=== PATIENT | female | born 1955 | race Hispanic/Latino ===

== ENCOUNTER → 2020-06-25 | Outpatient (CLI) | payer MEDICARE | LOC: RAD 10:01 | PROVIDERS: ATTEND Family Medicine | DX: D72.829 Elevated white blood cell count, unspecified (principal) | CPT/HCPCS: 71046 ==

== ENCOUNTER 2021-11-12 05:26 | Observation (INO) | payer MEDICARE ==
[~2021-11-12] VITALS: Ht 154.9 cm; Wt 68.9 kg
[2021-11-12] MEDS ORDERED: ONDANSETRON HCL INJ 2MG/ML 2ML 2 MG/ML VIAL IV STA (05:34)
[2021-11-12] MEDS ORDERED: SODIUM CHLORIDE 0.9% 1000ML 1,000 ML IV SCH ×2 (05:45→12:00)
[2021-11-12] MEDS ORDERED: Morphine 4mg INJECTION 4 MG/ML INJ IV ONE (05:45)
[2021-11-12] MEDS ORDERED: ACETAMINOPHEN 325 MG TAB PO ONE (05:45)
[2021-11-12] MEDS ORDERED: ONDANSETRON HCL INJ 2MG/ML 2ML 2 MG/ML VIAL ONE ×2 (05:49→12:44)
[2021-11-12] MEDS ORDERED: ACETAMINOPHEN 325 MG TAB ONE (05:49)
[2021-11-12] MEDS ORDERED: Morphine 4mg INJECTION 4 MG/ML INJ ONE (05:49)
[2021-11-12] MEDS ORDERED: SODIUM CHLORIDE 0.9% 1000ML 1,000 ML ONE (05:49)
[2021-11-12 06:01] LABS: BASOPHILS # (AUTO) 0.1 (0.0-0.1); BASOPHILS % 0.3 % (0.0-1.0); EOSINOPHILS # (AUTO) 0.1 (0.0-0.4); EOSINOPHILS % 0.6 % (0.0-6.0); HEMATOCRIT 42.9 % (34.2-44.1); HEMOGLOBIN 13.5 g/dL (12.0-16.0); LYMPHOCYTES # (AUTO) 2.8 (1.0-3.2); LYMPHOCYTES % 13.5 % (18.0-39.1); MEAN CORPUSCULAR HEMOGLOBIN 29.9 pg (28-32); MEAN CORPUSCULAR HGB CONC 31.5 g/dL (31-35); MEAN CORPUSCULAR VOLUME 95.1 fL (81-99); MONOCYTES # (AUTO) 1.2 (0.2-0.8); MONOCYTES % 5.7 % (4.4-11.3); NEUTROPHILS # (AUTO) 16.3 (2.1-6.9); NEUTROPHILS % 79.5 % (38.7-80.0); PLATELET COUNT 193 x10e3/uL (140-360); RED BLOOD COUNT 4.51 x10e6/uL (3.6-5.1); RED CELL DISTRIBUTION WIDTH 13.1 % (11.7-14.4)
[2021-11-12 06:18] LABS: ALBUMIN 4.3 g/dL (3.5-5.0); ALBUMIN/GLOBULIN RATIO 1.3 (0.8-2.0); ANION GAP 17.9 mmol/L (8-16); CALCIUM 9.5 mg/dL (8.4-10.2); CREATININE, SERUM 0.77 mg/dL (0.57-1.11); POTASSIUM 4.9 mmol/L (3.5-5.1)
[2021-11-12] MEDS ORDERED: PIPERACILLIN/TAZOBACTAM 3.375 GM VIAL ONE (06:34)
[2021-11-12 06:49] LABS: CLARITY,URINE CLEAR (CLEAR); COLOR,URINE YELLOW (YELLOW); KETONES,URINE NEGATIVE (NEGATIVE); LEUKOCYTE ESTERASE ,URINE NEGATIVE (NEGATIVE); NITRITE,URINE NEGATIVE (NEGATIVE); PROTEIN,URINE DIPSTICK NEGATIVE (NEGATIVE); URINE UROBILINOGEN 0.2 mg/dL (0.2 - 1)
[2021-11-12] MEDS ORDERED: IOPAMIDOL 370 MG/ML 100 ML INFUS..BTL INJ ONE (06:52)
[2021-11-12 06:59] LABS: BACTERIA,URINE FEW /HPF; EPITHELIAL CELLS,URINE FEW /LPF; WBC,URINE (MAN) 0-5 /HPF (0-5)
[2021-11-12] MEDS ORDERED: CRESTOR10 MG PO (11:23)
[2021-11-12] MEDS ORDERED: LOSARTAN POTASS25 MG PO (11:23)
[2021-11-12 11:45] VITALS: BP 118/72
[2021-11-12] MEDS ORDERED: ONDANSETRON HCL INJ 2MG/ML 2ML 2 MG/ML VIAL IV PRN ×2 (12:00→15:45)
[2021-11-12] MEDS: ACETAMINOPHEN 1000 MG/100 ML IV PRN (12:35)
[2021-11-12] MEDS ORDERED: DEXAMETHASONE SOD PHOS INJ 4 MG/ML SDV ONE (12:44)
[2021-11-12] MEDS ORDERED: ROCURONIUM BROMIDE 10 MG/ML 5ML VIAL IV ONE (12:44)
[2021-11-12] MEDS ORDERED: SEVOFLURANE INHAL SOLN 250 ML PEN BTL ONE (12:44)
[2021-11-12] MEDS ORDERED: POVIDONE IODINE 0.05% 0.05 % ML PO ONE (12:44)
[2021-11-12] MEDS ORDERED: LIDOCAINE HCL 2% LOCAL INJ 5 ML SDV VIAL INJ ONE (12:44)
[2021-11-12] MEDS ORDERED: PROPOFOL IV EMULSION 10 MG/ML 20 ML VIAL ONE (12:44)
[2021-11-12] MEDS ORDERED: MIDAZOLAM HCL 2 MG/2 ML VIAL ONE (13:12)
[2021-11-12] MEDS ORDERED: FENTANYL CITRATE/PF 100MCG/2 ML INJ ONE (13:12)
[2021-11-12] MEDS ORDERED: BUPIVACAINE HC 0.75% PF 10ML VIAL INJ ONE (14:33)
[2021-11-12] MEDS: SODIUM CHLORIDE 0.9% 1000ML 1,000 ML IV SCH (15:45)
[2021-11-12] MEDS ORDERED: Morphine 4mg INJECTION 4 MG/ML INJ IV PRN (15:45)
[2021-11-12 16:44] VITALS: BP 154/80
[2021-11-12] MEDS ORDERED: FAMOTIDINE 20 MG/2 ML VIAL IV SCH (17:00)
[2021-11-12 20:00] VITALS: BP 119/68
[2021-11-12] MEDS: FAMOTIDINE 20 MG/2 ML VIAL IV SCH (20:30)
[2021-11-12 21:26] VITALS: BP 119/68
[2021-11-13] VITALS (8 sets, daily range): BP systolic 127–145; BP diastolic 71–77
[2021-11-13] MEDS: ACETAMINOPHEN 325 MG TAB PO PRN ×2 (00:17→20:30)
[2021-11-13] MEDS: SODIUM CHLORIDE 0.9% 1000ML 1,000 ML IV SCH ×2 (02:58→12:53)
[2021-11-13] MEDS: ACETAMINOPHEN 1000 MG/100 ML IV PRN (08:35)
[2021-11-13] MEDS: FAMOTIDINE 20 MG/2 ML VIAL IV SCH ×2 (08:51→20:29)
[2021-11-13] MEDS ORDERED: IOPAMIDOL 370 MG/ML 100 ML INFUS..BTL INJ ONE ×2 (11:42→14:27)
[2021-11-13] MEDS: SIMETHICONE 80 MG CHEW PO PRN ×2 (12:54→20:29)
[2021-11-13 13:43] LABS: BASOPHILS # (AUTO) 0.1 (0.0-0.1); BASOPHILS % 0.3 % (0.0-1.0); EOSINOPHILS % 0.2 % (0.0-6.0); HEMATOCRIT 37.4 % (34.2-44.1); HEMOGLOBIN 11.4 g/dL (12.0-16.0); LYMPHOCYTES # (AUTO) 2.4 (1.0-3.2); LYMPHOCYTES % 11.9 % (18.0-39.1); MEAN CORPUSCULAR HEMOGLOBIN 30.2 pg (28-32); MEAN CORPUSCULAR HGB CONC 30.5 g/dL (31-35); MEAN CORPUSCULAR VOLUME 98.9 fL (81-99); MONOCYTES # (AUTO) 0.8 (0.2-0.8); MONOCYTES % 4.2 % (4.4-11.3); NEUTROPHILS # (AUTO) 16.5 (2.1-6.9); NEUTROPHILS % 82.9 % (38.7-80.0); PLATELET COUNT 158 x10e3/uL (140-360); RED BLOOD COUNT 3.78 x10e6/uL (3.6-5.1); RED CELL DISTRIBUTION WIDTH 13.2 % (11.7-14.4)
[2021-11-13 13:57] LABS: ANION GAP 14.3 mmol/L (8-16); CALCIUM 8.4 mg/dL (8.4-10.2); CREATININE, SERUM 0.73 mg/dL (0.57-1.11); POTASSIUM 4.3 mmol/L (3.5-5.1)
[2021-11-13] MEDS: TRAMADOL HCL 50 MG TAB PO PRN (14:30)
[2021-11-14] VITALS: BP 132/82
[2021-11-14] MEDS: SODIUM CHLORIDE 0.9% 1000ML 1,000 ML IV SCH (03:09)
[2021-11-14 04:00] VITALS: BP 134/86
[2021-11-14 08:04] VITALS: BP 139/84
[2021-11-14 08:09] VITALS: BP 139/84
[2021-11-14] MEDS: TRAMADOL HCL 50 MG TAB PO PRN (08:36)
[2021-11-14] MEDS: FAMOTIDINE 20 MG/2 ML VIAL IV SCH (09:08)
[2021-11-14] MEDS: SIMETHICONE 80 MG CHEW PO PRN (09:08)
[2021-11-14] MEDS ORDERED: ONDANSETRON ODT4 MG PO (10:27)
[2021-11-14] MEDS ORDERED: SENNA LAX8.6 MG PO (10:27)
[2021-11-14] MEDS ORDERED: TYLENOL325 MG PO (10:27)
[2021-11-14] MEDS ORDERED: METRONIDAZOLE500 MG PO (10:27)
[2021-11-14] MEDS ORDERED: CEPHALEXIN500 MG PO (10:27)
[2021-11-14 11:31] VITALS: BP 138/78
== END 2021-11-14 12:47 | disposition home or self-care (01) ==
LOC: ER 05:35 → ERHOLD 08:00 → MED/SURG 10:20
PROVIDERS: ADMIT Internal Medicine; ATTEND Internal Medicine
DX: A41.9 Sepsis, unspecified organism (principal); K35.80 Unspecified acute appendicitis; I10 Essential (primary) hypertension; E78.5 Hyperlipidemia, unspecified; Z88.5 Allergy status to narcotic agent; R91.1 Solitary pulmonary nodule; E78.00 Pure hypercholesterolemia, unspecified; Z85.3 Personal history of malignant neoplasm of breast; Z90.10 Acquired absence of unspecified breast and nipple; Z20.822 Contact with and (suspected) exposure to COVID-19
CPT/HCPCS: 0223U; 36415 ×2; 44970; 71260; 74177; 80048; 80053; 81001; 83605; 83690; 85025 ×2; 87040; 88304; 94799 ×2; 99284; G0378 ×3; J0131 ×2; J1100; J2001; J2250; J2270; J2405; J2543 ×3; J2704; J3010; J7030 ×3; Q9967 ×2

== ENCOUNTER → 2022-09-14 | Outpatient (CLI) | payer MEDICARE ==
[~2022-09-14] MED LIST: CEPHALEXIN500 MG PO; CRESTOR10 MG PO; LOSARTAN POTASS25 MG PO; METRONIDAZOLE500 MG PO; ONDANSETRON ODT4 MG PO; SENNA LAX8.6 MG PO; TYLENOL325 MG PO
== END ==
LOC: MRI 08-27 12:53
PROVIDERS: ATTEND Specialist
DX: M75.122 Complete rotator cuff tear or rupture of left shoulder, not specified as traumatic (principal); M19.012 Primary osteoarthritis, left shoulder; M75.22 Bicipital tendinitis, left shoulder